=== PATIENT | female | born 1955 | race Caucasian/White ===

== ENCOUNTER 2017-11-04 01:13 | Emergency (ER) | payer SELFPAY ==
[~2017-11-04] VITALS: Ht 157.5 cm; Wt 70.0 kg
[2017-11-04 01:14] VITALS: BP 138/83
== END 2017-11-04 01:18 | disposition left against medical advice (07) ==
LOC: EMS 01:14
DX: M25.519 Pain in unspecified shoulder (principal); Z53.21 Procedure and treatment not carried out due to patient leaving prior to being seen by health care provider